=== PATIENT | female | born 1980 | race African-American/Black ===

== ENCOUNTER 2020-06-30 01:08 | Emergency (ER) | payer MEDICAID ==
[~2020-06-30] VITALS: Ht 162.6 cm; Wt 54.0 kg
[2020-06-30] MEDS ORDERED: OLANZAPINE 10 MG/VIAL IM ONE (01:30)
[2020-06-30] MEDS ORDERED: DIPHENHYDRAMINE 50MG/ML VIAL IM ONE (01:30)
[2020-06-30 01:59] LABS: CLARITY URINE CLOUDY (CLEAR); COLOR URINE DARK YELLOW (YELLOW); KETONES URINE 1+ (NEGATIVE); LEUKOCYTE ESTERASE URINE 2+ (NEGATIVE); NITRITE URINE NEGATIVE (NEGATIVE); OCCULT BLOOD URINE TRACE (NEGATIVE); PROTEIN URINE 1+ (NEGATIVE); SPECIFIC GRAVITY URINE 1.026 (1.005-1.030)
[2020-06-30 02:12] LABS: *BARBITURATES SCREEN URINE NEGATIVE (NEGATIVE); *BENZODIAZEPINES SCREEN URINE NEGATIVE (NEGATIVE); *COCAINE SCREEN URINE NEGATIVE (NEGATIVE)
[2020-06-30 02:13] LABS: CANNABINOID URINE SCREEN NEGATIVE (NEGATIVE); METHADONE URINE SCREEN NEGATIVE (NEGATIVE); OPIATES URINE SCREEN NEGATIVE (NEGATIVE); PHENCYCLIDINE URINE SCREEN NEGATIVE (NEGATIVE)
[2020-06-30 02:19] LABS: *AMPHETAMINES SCREEN URINE PRESUMTIVE POSITIVE (NEGATIVE)
[2020-06-30] MEDS ORDERED: ONDANSETRON 4MG ODT PO ONE (06:00)
[2020-06-30] MEDS ORDERED: METRONIDAZOLE 500MG TABLET PO ONE (10:30)
[2020-06-30] MEDS ORDERED: LORAZEPAM 2MG/ML CPJ IM STA (10:54)
[2020-06-30 11:09] LABS: BASOPHILS % 0.6 % (0.0-2.0); EOSINOPHILS % 1.1 % (0.0-5.0); HEMATOCRIT. 43.3 % (36.0-48.0); LYMPHOCYTES % 21.4 % (20.0-50.0); MEAN CORPUSCULAR HEMOGLOBIN 32.8 pg (28.0-32.0); MEAN CORPUSCULAR VOLUME 94.6 fL (81.0-99.0); MEAN PLATELET VOLUME 8.1 fl (7.4-10.4); NEUTROPHILS % 64.9 % (40.0-76.0); PLATELET 287 x1000/uL (130-400); RED BLOOD CELL COUNT 4.58 mill/uL (4.2-5.4); RED CELL DISTRIBUTION WIDTH 13.1 % (11.6-14.6)
[2020-06-30 11:11] LABS: CHLORIDE 104 mEq/L (98-107)
[2020-06-30 11:16] LABS: ETHANOL BLOOD < 10 mg/dL
[2020-06-30 11:41] LABS: HCG SCREEN NEGATIVE
[2020-06-30] MEDS: NITROFURANTOIN 100MG M/M CAPSULE PO SCH (20:38)
[2020-06-30] MEDS ORDERED: LORAZEPAM 1MG TABLET PO ONE (22:30)
[2020-06-30] MEDS: RISPERIDONE 1MG TABLET PO SCH (22:47)
[2020-07-01] MEDS: RISPERIDONE 1MG TABLET PO SCH ×2 (09:35→17:00)
[2020-07-01] MEDS: NITROFURANTOIN 100MG M/M CAPSULE PO SCH ×2 (09:35→22:43)
[2020-07-01] MEDS ORDERED: LORAZEPAM 1MG TABLET PO ONE (20:45)
[2020-07-01] MEDS ORDERED: RISPERIDONE 1MG TABLET PO SCH (20:45)
[2020-07-02] MEDS ORDERED: RISPERIDONE 1MG TABLET PO SCH (09:00)
[2020-07-02] MEDS: NITROFURANTOIN 100MG M/M CAPSULE PO SCH (09:00)
[2020-07-02 10:15] VITALS: BP 98/67
== END 2020-07-02 10:30 | disposition home or self-care (01) ==
LOC: ER 01:08
DX: R26.9 Unspecified abnormalities of gait and mobility (principal); F91.8 Other conduct disorders; F15.10 Other stimulant abuse, uncomplicated; F16.10 Hallucinogen abuse, uncomplicated; F20.9 Schizophrenia, unspecified; N39.0 Urinary tract infection, site not specified; F32.9 Major depressive disorder, single episode, unspecified; R45.851 Suicidal ideations; Z03.818 Encounter for observation for suspected exposure to other biological agents ruled out; Z75.1 Person awaiting admission to adequate facility elsewhere
CPT/HCPCS: 36415; 80053; 80305; 80307; 80320; 80329; 81003; 81025; 84484; 84703; 85025; 87635; 93005; 96372; 99285; C9803; J1200; J2060; J3490; Q0162; G0480